=== PATIENT | female | born 1990 | race Caucasian/White ===

== ENCOUNTER 2019-03-08 08:05 | Emergency (ER) | payer OTHER ==
[~2019-03-08] VITALS: Ht 167.6 cm; Wt 73.5 kg
--- OUTSIDE RECORDS SUMMARY | ~2019-03-08 | XMS | Clinical Summary ---
Demographics + + + | Address | [address] | | | [place] [address] | + + + | Home Phone | | + + + | Preferred Language | Unknown | + + + | Marital Status | Single | + + + | Pentecostal Affiliation | Unknown | + + + | Race | Unknown | + + + | Ethnic Group | Unknown | + + + Author + + + | Author | [facility] | | | and [place] | + + + | Organization | [facility] | | | and [place] | + + + | Address | Unknown | + + + | Phone | Unavailable | + + + Support + + + + + | Name | Relationship | Address | Phone | + + + + + | Aviva Hall | [place] | [address] | | | | | [place] [address] | | + + + + + | Preeti Kirkpatrick | ECON | [address] | | | | | [place] | | | | | [address] | | + + + + + Care Team Providers + +------+ + | Care Missile Pad Mechanic Name | Role | Phone | + +------+ + PCP | Unavailable | + +------+ + Allergies + + + + + + | Active Allergy | Reactions | Severity | Noted | Comments | | | | | Date | | + + + + + + | Penicillins | | | 02/15/20 | | | | | | 13 | | + + + + + + Medications + + + +---------+------+------+-------+ | Medication | Sig | Dispensed | Refills | Star | End | Statu | | | | | | t | Date | s | | | | | | Date | | | + + + +---------+------+------+-------+ | | CAPS | | 0 | 02/1 | | Activ | | Mmvtvc-YsHpk-NqQjrx- | | | | /20 | | e | | FA-FishOil | | | | 13 | | | | (PNV-TOTAL PO) | | | | | | | + + + +---------+------+------+-------+ | norethindrone | 1 tablet by mouth | | 0 | 02/1 | | Activ | | (ORTHO MICRONOR) | daily at the same | | | 5/20 | | e | | 0.35 MG tablet | time very day. | | | 13 | | | + + + +---------+------+------+-------+ Active Problems Not on file Social History + +-------+ +--------+------+ | Tobacco Use | Types | Packs/Day | Years | Date | | | | | Used | | + +-------+ +--------+------+ | Never Assessed | | | | | + +-------+ +--------+------+ + + + | Sex Assigned at | Date Recorded | | | | + + + | Not on file | | + + + + + + + | Job Start Date | Occupation | Industry | + + + + | Not on file | Not on file | Not on file | + + + + + + + + | Travel History | Travel Start | Travel End | + + + + + + | No recent travel history available. | + + Last Filed Vital Signs + + + + | Vital Sign | Reading | Time Taken | + + + + | Blood Pressure | 105/57 | 07/09/2012 0000 PST | + + + + | Pulse | - | - | + + + + | Temperature | - | - | + + + + | Respiratory Rate | - | - | + + + + | Oxygen Saturation | - | - | + + + + | Inhaled Oxygen | - | - | | Concentration | | | + + + + | Weight | 68 kg (150 lb) | 07/09/2012 0000 PST | + + + + | Height | - | - | + + + + | Body Mass Index | - | - | + + + + Plan of Treatment + + + + + | Health Maintenance | Due Date | Last Done | Comments | + + + + + | Vaccine: | | | | | Dtap/Tdap/Td (1 - | 1 | | | | Tdap) | | | | + + + + + | Cervical Cancer | | | | | Screening (Pap) | 3 | | | + + + + + | Vaccine: Influenza | | | | | (#1) | 9 | | | + + + + + Results Not on filefrom Last 3 Months"
--- OUTSIDE RECORDS SUMMARY | ~2019-03-08 | XMS | Clinical Summary ---
Demographics + + + | Address | [address] | | | [place] [address] | + + + | Home Phone | | + + + | Preferred Language | Unknown | + + + | Marital Status | Single | + + + | Hindu Affiliation | Unknown | + + + | Race | Unknown | + + + | Ethnic Group | Unknown | + + + Author + + + | Author | [facility] | | | and [place] | + + + | Organization | [facility] | | | and [place] | + + + | Address | Unknown | + + + | Phone | Unavailable | + + + Support + + + + + | Name | Relationship | Address | Phone | + + + + + | Aviva Hall | [place] | [address] | | | | | [place] [address] | | + + + + + | Preeti Kirkpatrick | ECON | [address] | | | | | [place] | | | | | [address] | | + + + + + Care Team Providers + +------+ + | Care Machine Stoppage Frequency Checker Name | Role | Phone | + [...] | 02/1 | | Activ | | [id number]-[id number]-ZoOvqo- | | | | /20 | | [...]
[~2019-03-08 08:05] MED LIST: EXTRA STRENGTH500 MG PO
[2019-03-08] MEDS ORDERED: IBUPROFEN200 M1 PO (08:19)
== END 2019-03-08 08:59 | disposition home or self-care (01) ==
LOC: ED 08:05
DX: M25.531 Pain in right wrist (principal); F17.200 Nicotine dependence, unspecified, uncomplicated; Z88.0 Allergy status to penicillin
CPT/HCPCS: 99283

== ENCOUNTER 2020-07-24 08:52 | Emergency (ER) | payer OTHER ==
[~2020-07-24] VITALS: Ht 167.6 cm; Wt 73.5 kg
[~2020-07-24 08:52] MED LIST changes: +IBUPROFEN200 M1 PO
[2020-07-24] MEDS ORDERED: HAIR SKIN NAIL1 EACH PO (09:22)
[2020-07-24] MEDS ORDERED: VITAMIN D-40010 MCG PO (09:22)
[2020-07-24] MEDS ORDERED: SPRINTEC1 EACH PO (09:23)
== END 2020-07-24 10:37 | disposition home or self-care (01) ==
LOC: ED 08:52
DX: S80.01XA Contusion of right knee, initial encounter (principal); W22.8XXA Striking against or struck by other objects, initial encounter; Y99.0 Civilian activity done for income or pay; F17.200 Nicotine dependence, unspecified, uncomplicated; Z79.899 Other long term (current) drug therapy; Z88.0 Allergy status to penicillin
CPT/HCPCS: 73560; 73562; 90471; 90715; 99283-25; 99406

== ENCOUNTER 2023-11-06 00:24 | Inpatient (IN) | payer OTHER ==
[~2023-11-06] VITALS: Ht 167.6 cm; Wt 98.9 kg
[~2023-11-06 00:24] MED LIST changes: +HAIR SKIN NAIL1 EACH PO; +SPRINTEC1 EACH PO; +VITAMIN D-40010 MCG PO
[2023-11-06] MEDS ORDERED: CLINDAMYCIN PHOSPHATE/D5W 900 MG/50 ML BAG IV SCH (08:00)
[2023-11-06] MEDS ORDERED: OXYTOCIN/DEXTROSE 5% 20 UNITS/100 ML BAG IV SCH (08:15)
[2023-11-06] MEDS ORDERED: MAGNESIUM HYDROXIDE/AL HYDROX 30 ML CUP PO PRN ×2 (08:15→18:00)
[2023-11-06] MEDS ORDERED: LACTATED RINGER'S 1,000 ML IV SCH (08:15)
[2023-11-06] MEDS ORDERED: CALCIUM CARBONATE 500 MG CHEW PO PRN ×2 (08:15→18:00)
[2023-11-06 08:46] LABS: HEMATOCRIT 35.5 % (35.0-50.0); HEMOGLOBIN 11.9 g/dL (12.0-18.0); MCH 30.3 (27-36); MCHC 33.7 g/dl (30-36); MCV 89.9 fl (81-99); RBC 3.94 M/ul (4.3-5.7); RDW 14.1 (10.5-15.0)
[2023-11-06 09:03] VITALS: BP 126/83
[2023-11-06 09:23] LABS: ABO O; ANTIBODY SCREEN NEGATIVE; RH POSITIVE
[2023-11-06 11:01] LABS: AMPHETAMINES, URINE NEGATIVE (NEGATIVE); BARBITURATES, URINE NEGATIVE (NEGATIVE); BENZODIAZEPINE, URINE NEGATIVE (NEGATIVE); BUPRENORPHINE, URINE NEGATIVE (NEGATIVE); CANNABINOID, URINE NEGATIVE (NEGATIVE); COCAINE, URINE NEGATIVE (NEGATIVE); ECSTASY, URINE NEGATIVE (NEGATIVE); FENTANYL, URINE NEGATIVE (NEGATIVE); METHADONE, URINE NEGATIVE (NEGATIVE); OPIATES, URINE NEGATIVE (NEGATIVE); OXYCODONE, URINE NEGATIVE (NEGATIVE); PHENCYCLIDINE, URINE NEGATIVE (NEGATIVE)
[2023-11-06] MEDS ORDERED: ROPIVACAINE 0.2% 200 ML BAG ONE (14:01)
[2023-11-06] MEDS ORDERED: ondansetron HCL 4 MG/2 ML VIAL IV PRN (14:15)
[2023-11-06] MEDS ORDERED: LACTATED RINGER'S 2,000 ML IV ONE (14:45)
[2023-11-06] MEDS ORDERED: ePHEDrine sulfate 5 MG/ML SYRINGE IV PRN (14:45)
[2023-11-06] MEDS ORDERED: ROPIVACAINE 0.2% 200 ML BAG EPIDURAL SCH (14:45)
[2023-11-06] MEDS ORDERED: LACTATED RINGER'S 500 ML IV PRN (14:45)
--- NOTE | 2023-11-06 15:35 | PR ---
[facility] [address] [place], [place] [address] Signed Progress Notes IP Datetime Report Generated by CPN: 11/06/2023 15:35 PROGRESS NOTES: [id number] Impression: Normal Progression of Labor; Reassuring Heart Rate Procedures: Sterile Vag Exam Plan: Anticipate Vaginal Delivery Informed Consent Obtain: Vaginal Delivery VITAL SIGNS: [id number] Vital Signs: Reviewed; Within Normal Limits EXAM: [id number] Dilatation: 10.0 Effacement: 90 Station: -2 Contractions: q 2 min MEMBRANES: [id number] Comments: Pt seen and examined. Doing well. Comfortable w /epidural. Pt complete and pushing however deceleration noted. Will reposition and labor down. Monitor closely. Anticipate soon FETUS A: [id number] FHR Baseline: 125 Variability: Moderate 6-25bpm Accelerations: 15X15 Decelerations: Early; Prolonged FHR Category: Category II Presentation: Vertex Comments on Fetus A: No evidence of metabolic acidosis FETUS B: [id number] Signing Physician: Unruly Pedraza DO Copies: ~ *Electronically Signed* 11/06/23 2937 UNRULY PEDRAZA (YOGI) DO PATIENT NAME: HEATHER ALEXANDRE PROGRESS NOTE DATE OF : 89 PHYSICIAN: UNRULY PEDRAZA) DO RPT #: [id number] REPORT IS CONFIDENTIAL AND NOT TO BE RELEASED WITHOUT AUTHORIZATION
[2023-11-06] MEDS ORDERED: TRANEXAMIC ACID IN NACL,ISO-OS 1,000 MG/100 ML PIGGYBACK IV ONE (17:45)
[2023-11-06] MEDS ORDERED: MAGNESIUM HYDROXIDE 30 ML UDC PO PRN (18:00)
[2023-11-06] MEDS ORDERED: OXYCODONE HCL 5 MG TAB PO PRN (18:00)
[2023-11-06] MEDS ORDERED: OXYTOCIN/0.9 % SODIUM CHLORIDE 500 ML IV SCH (18:00)
[2023-11-06] MEDS ORDERED: IBUPROFEN 600 MG TAB PO PRN (18:00)
[2023-11-06] MEDS ORDERED: WITCH HAZEL/GLYCERIN 1 EA PAD TOP PRN (18:00)
[2023-11-06] MEDS ORDERED: ACETAMINOPHEN 325 MG TAB PO PRN (18:00)
[2023-11-06] MEDS ORDERED: BENZOCAINE 60 ML AEROSOL TOP PRN (18:00)
[2023-11-06] MEDS ORDERED: HYDROCORTISONE ACETATE 25 MG SUPP PR PRN (18:00)
[2023-11-06] MEDS ORDERED: OXYCODONE/APAP 5/325 TAB PO PRN (18:00)
[2023-11-06] MEDS ORDERED: HYDROCODONE/ACETA 5/325 TAB PO PRN (18:00)
[2023-11-06] MEDS ORDERED: SENNOSIDES/DOCUSATE 1 EA TAB PO SCH (21:00)
[2023-11-07] MEDS ORDERED: OXYTOCIN/0.9 % SODIUM CHLORIDE 500 ML IV ONE (03:00)
[2023-11-07 05:34] LABS: HEMATOCRIT 29.3 % (35.0-50.0); MCH 30.7 (27-36); MCHC 34.3 g/dl (30-36); MCV 89.5 fl (81-99); RBC 3.28 M/ul (4.3-5.7); RDW 13.9 (10.5-15.0)
--- NOTE | 2023-11-07 10:16 | PR ---
[facility] [address] [facility] [place], [place] [address] Signed PP Progress Notes Datetime Report Generated by CPN: 11/07/2023 10:16 SUBJECTIVE: [id number] Pain: Within Normal Limits Nausea/Vomiting: Denies Flatus: Yes Bowel Movement: Yes Vital Signs: [id number] Vital Signs: Reviewed; Within Normal Limits EXAM: Ongoing Cardiovascular: Normal Respiratory: Normal Abdomen/Uterus: Normal Lochia: Normal Vulva/Perineum: Not Done Breasts: Not Done CVA Tenderness: Normal Extremities: Normal Incision: Not Applicable Progress: Normal Exam Comments: Fundus firm U-2 nontender IMPRESSION/PLAN/PROCEDURES: [id number] Impression: Normal Progression Plan: Discharge Progress Notes: Pt seen and examined. Doing well. Ambulating, voiding, and tolerating full diet. Pain and lochia minimal. w/ some difficulty; considering pumping vs formula. Desired d/c home. No lightheadedness / dizziness. No other concerns. Reviewed d/c instructions and medications. All questions answered. Signing Physician: Unruly Pedraza DO Copies: ~ *Electronically Signed* 11/07/23 UNRULY ARROYO (YOGI) DO PATIENT NAME: HEATHER ALEXANDRE PROGRESS NOTE DATE OF : 91 PHYSICIAN: UNRULY PEDRAZA) DO RPT #: [id number] REPORT IS CONFIDENTIAL AND NOT TO BE RELEASED WITHOUT AUTHORIZATION
== END 2023-11-07 18:41 | disposition home or self-care (01) | DRG 806 ==
LOC: FBC 00:24
PROVIDERS: ADMIT Obstetrics & Gynecology; ATTEND Obstetrics & Gynecology
PROC: 10E0XZZ Delivery of Products of Conception, External Approach (ICD-10-PCS; principal; 2023-11-06)
PROC: 0KQM0ZZ Repair Perineum Muscle, Open Approach (ICD-10-PCS; 2023-11-06)
PROC: 10907ZC Drainage of Amniotic Fluid, Therapeutic from Products of Conception, Via Natural or Artificial Opening (ICD-10-PCS; 2023-11-06)
PROC: 3E0R3BZ Introduction of Anesthetic Agent into Spinal Canal, Percutaneous Approach (ICD-10-PCS; 2023-11-06)
PROC: 00HU33Z Insertion of Infusion Device into Spinal Canal, Percutaneous Approach (ICD-10-PCS; 2023-11-06)
DX: O99.824 Streptococcus B carrier state complicating childbirth (principal); O98.32 Other infections with a predominantly sexual mode of transmission complicating childbirth; Z37.0 Single live birth; Z3A.39 39 weeks gestation of pregnancy; Z88.0 Allergy status to penicillin; O99.02 Anemia complicating childbirth; D50.9 Iron deficiency anemia, unspecified; O99.334 Smoking (tobacco) complicating childbirth; F17.210 Nicotine dependence, cigarettes, uncomplicated; A60.09 Herpesviral infection of other urogenital tract; O99.52 Diseases of the respiratory system complicating childbirth; J45.909 Unspecified asthma, uncomplicated; Z98.890 Other specified postprocedural states; O99.314 Alcohol use complicating childbirth; F10.90 Alcohol use, unspecified, uncomplicated
CPT/HCPCS: 01960; 36415; 80307; 85027; 86850; 86900; 86901; A9270; J2590; J3490; J7121